=== PATIENT | male | born 1970 | race African-American/Black ===

== ENCOUNTER 2017-09-14 17:32 | Inpatient (IN) ==
[2017-09-14 18:55] LABS: Basophils # 0.1 10*3/uL (0.0-0.2); Basophils % 0.3 % (0.0-0.8); Hematocrit 45.9 VOL% (42.0-52.0); Hemoglobin 15.1 GM/DL (14.0-18.0); Immature Granulocytes % 1.2 %; Immature Granulocytes Absolute 0.26 #; Lymphocytes # 1.7 10*3/uL (1.4-4.0); Mean Corpuscular HGB Conc 32.9 GM/DL (32-36); Mean Corpuscular Hemoglobin 29 PG (27-34); Mean Platelet Volume 9.1 FL (9.6-12.0); Monocytes # 1.6 10*3/uL (0.11-0.8); Monocytes % 7.2 % (1.7-12.7); Neutrophils % 83.3 % (38.7-73.9); Platelet Count 253 T/CUMM (130-400); Red Blood Count 5.16 MC/CUMM (3.8-5.5); Red Cell Distribution Width 13.7 % (9.3-17.3); White Blood Count 21.6 T/CUMM (4-12)
[2017-09-14] MEDS ORDERED: MECLIZINE 25 MG TABLET PO STA (19:01)
[2017-09-14] MEDS ORDERED: ONDANSETRON ODT 4 MG TABLET PO STA (19:01)
[2017-09-14] MEDS ORDERED: SODIUM CHLORIDE 0.9% 500 ML IV STA (19:01)
[2017-09-14 19:14] LABS: Alanine Aminotransferase 43 U/L (16-61); Albumin 3.5 G/DL (3.4-5.0); Alkaline Phosphatase 71 U/L (45-117); Aspartate Amino Transferase 39 U/L (0-37); Blood Urea Nitrogen 12 MG/DL (7-18); Calcium 9.6 MG/DL (8.5-10.1); Glucose 116 MG/DL (74-106); Osmolality,Calculated 273.8 MOS/KG (273-304); Potassium 3.9 MMOL/L (3.5-5.1); Sodium 137 MMOL/L (136-145); Total Protein 7.9 G/DL (6.4-8.3); Troponin I Only < 0.015 NG/ML (0.00-0.045)
[2017-09-14 19:29] LABS: Apearance,Urine Slightly Hazy (Clear); Bacteria,Urine Occasional /HPF (Few); Bilirubin,Urine Negative (Negative); Blood, Urine Moderate mg/dL (Negative); Glucose,Urine (UA) Negative (Negative); Ketones,Urine Negative (Negative); Mucus,Urine Occasional /LPF (Occasional); Nitrite,Urine Negative (Negative); Protein,Urine 100 MG/DL; RBC,Urine 1 /HPF (0-4); Squamous Epithelial Cell,Urine Occasional /HPF (0-10); Urine Color Yellow (Yellow); Urine Specific Gravity 1.023 (1.001-1.035); Urine Urobilinogen < 2.0 EU/DL (0.2-1.0); WBC,Urine 14 /HPF (0-6)
[2017-09-14 19:32] LABS: Barbiturates Screen,Urine Negative (Negative); Benzodiazepines Screen,Urine Negative (Negative); Cannabinoid Screen,Urine Negative (Negative); Opiate Screen,Urine Negative (Negative); Phencyclidine Screen,Urine Negative (Negative)
[2017-09-14] MEDS ORDERED: ONDANSETRON ODT 4 MG TABLET PO ONE (19:32)
[2017-09-14] MEDS ORDERED: MECLIZINE 25 MG TABLET ONE (19:32)
[2017-09-14] MEDS ORDERED: cefTRIAXone 1,000 MG in SODIUM CHLORIDE 0.9% 100 ML IV STA (19:41)
[2017-09-14 20:02] LABS: Band Neutrophils 4 % (0-10); Hypochromasia 2+; Lymphocytes 9 % (20-55); Platelet Estimate Normal; Segmented Neutrophils 82 % (50-85); Total Cells Counted 100
[2017-09-14] MEDS ORDERED: cefTRIAXone 1,000 MG VIAL ONE (20:28)
[2017-09-15] MEDS ORDERED: ONDANSETRON 4 MG/2 ML VIAL IV PRN (02:17)
[2017-09-15] MEDS ORDERED: ACETAMINOPHEN 325 MG TABLET PO PRN (02:17)
[2017-09-15] MEDS ORDERED: MORPHINE 2 MG/1 ML SYRINGE IV PRN (02:17)
[2017-09-15] MEDS: SODIUM CHLORIDE 0.9% 1,000 ML IV SCH ×2 (03:05→17:05)
[2017-09-15] MEDS ORDERED: PIPERACILLIN/TAZOBACTAM 3,375 MG in SODIUM CHLORIDE 0.9% 100 ML IV SCH (04:00)
[2017-09-15] MEDS: TERBINAFINE 1% CREAM 12 GM TUBE TOP SCH ×3 (04:56→20:46)
[2017-09-15] MEDS ORDERED: ALUMINUM/MAGNES/SIMETH MAX STR 30 ML UDCUP PO PRN (05:14)
[2017-09-15 05:28] LABS: Basophils # 0.1 10*3/uL (0.0-0.2); Basophils % 0.3 % (0.0-0.8); Eosinophils % 0.1 % (0.00-10.9); Hematocrit 40.5 VOL% (42.0-52.0); Hemoglobin 13.5 GM/DL (14.0-18.0); Immature Granulocytes % 0.8 %; Immature Granulocytes Absolute 0.14 #; Lymphocytes # 1.6 10*3/uL (1.4-4.0); Lymphocytes % 9.6 % (21.2-54.2); Mean Corpuscular HGB Conc 33.3 GM/DL (32-36); Mean Corpuscular Hemoglobin 30 PG (27-34); Mean Platelet Volume 9.6 FL (9.6-12.0); Monocytes # 1.3 10*3/uL (0.11-0.8); Monocytes % 7.8 % (1.7-12.7); Neutrophils % 81.4 % (38.7-73.9); Platelet Count 219 T/CUMM (130-400); Red Blood Count 4.55 MC/CUMM (3.8-5.5); Red Cell Distribution Width 13.8 % (9.3-17.3); White Blood Count 17.1 T/CUMM (4-12)
[2017-09-15 05:50] LABS: Band Neutrophils 1 % (0-10); Giant Platelets Few; Hypochromasia 1+; Lymphocytes 5 % (20-55); Microcytosis Slight; Platelet Estimate Adequate; Segmented Neutrophils 86 % (50-85); Total Cells Counted 100
[2017-09-15 05:56] LABS: Calcium 8.5 MG/DL (8.5-10.1); Osmolality,Calculated 278.5 MOS/KG (273-304); Potassium 3.8 MMOL/L (3.5-5.1)
[2017-09-15] MEDS ORDERED: CEFTAROLINE 600 MG in SODIUM CHLORIDE 0.9% 100 ML IV SCH (08:00)
[2017-09-15] MEDS: PANTOPRAZOLE 40 MG TABLET PO SCH (09:34)
[2017-09-15] MEDS: ENOXAPARIN 40 MG/0.4 ML SYRINGE SUBCUT SCH (09:34)
[2017-09-15] MEDS: CEFTAROLINE 600 MG in SODIUM CHLORIDE 0.9% 100 ML IV SCH ×2 (11:22→23:00)
[2017-09-15] MEDS: FLUCONAZOLE INJ 200 MG in PREMIX 1 EACH IV SCH (13:41)
[2017-09-15] MEDS: METOPROLOL SUCCINATE XL 50 MG TABLET PO SCH (17:03)
[2017-09-16] MEDS: SODIUM CHLORIDE 0.9% 1,000 ML IV SCH ×4 (01:05→19:13)
[2017-09-16 05:12] LABS: Basophils % 0.3 % (0.0-0.8); Eosinophils % 0.3 % (0.00-10.9); Hematocrit 39.4 VOL% (42.0-52.0); Hemoglobin 13.5 GM/DL (14.0-18.0); Immature Granulocytes % 1.3 %; Immature Granulocytes Absolute 0.15 #; Lymphocytes # 2.6 10*3/uL (1.4-4.0); Lymphocytes % 21.3 % (21.2-54.2); Mean Corpuscular HGB Conc 34.3 GM/DL (32-36); Mean Corpuscular Hemoglobin 30 PG (27-34); Mean Corpuscular Volume 87.4 FL (87-102); Mean Platelet Volume 9.5 FL (9.6-12.0); Monocytes # 1.2 10*3/uL (0.11-0.8); Neutrophils % 66.8 % (38.7-73.9); Platelet Count 251 T/CUMM (130-400); Red Blood Count 4.51 MC/CUMM (3.8-5.5)
[2017-09-16 05:33] LABS: Band Neutrophils 1 % (0-10); Giant Platelets Few; Hypochromasia Slight; Lymphocytes 11 % (20-55); Microcytosis Slight; Platelet Estimate Adequate; Segmented Neutrophils 77 % (50-85); Total Cells Counted 100
[2017-09-16] MEDS: ENOXAPARIN 40 MG/0.4 ML SYRINGE SUBCUT SCH (09:56)
[2017-09-16] MEDS: TERBINAFINE 1% CREAM 12 GM TUBE TOP SCH ×2 (09:57→22:12)
[2017-09-16] MEDS: PANTOPRAZOLE 40 MG TABLET PO SCH (09:57)
[2017-09-16] MEDS: METOPROLOL SUCCINATE XL 50 MG TABLET PO SCH (09:58)
[2017-09-16] MEDS: FLUCONAZOLE INJ 200 MG in PREMIX 1 EACH IV SCH (09:59)
[2017-09-16] MEDS: CEFTAROLINE 600 MG in SODIUM CHLORIDE 0.9% 100 ML IV SCH ×2 (12:57→23:13)
[2017-09-17 03:30] LABS: Basophils # 0.1 10*3/uL (0.0-0.2); Basophils % 0.5 % (0.0-0.8); Eosinophils # 0.1 10*3/uL (0.0-0.87); Hematocrit 40.6 VOL% (42.0-52.0); Hemoglobin 13.3 GM/DL (14.0-18.0); Immature Granulocytes % 3.6 %; Immature Granulocytes Absolute 0.42 #; Lymphocytes # 2.9 10*3/uL (1.4-4.0); Lymphocytes % 24.6 % (21.2-54.2); Mean Corpuscular HGB Conc 32.8 GM/DL (32-36); Mean Corpuscular Hemoglobin 29 PG (27-34); Mean Corpuscular Volume 89.8 FL (87-102); Mean Platelet Volume 9.6 FL (9.6-12.0); Monocytes # 1.1 10*3/uL (0.11-0.8); Monocytes % 9.5 % (1.7-12.7); Neutrophils # 7.1 10*3/uL (1.4-7.4); Neutrophils % 60.8 % (38.7-73.9); Platelet Count 236 T/CUMM (130-400); Red Blood Count 4.52 MC/CUMM (3.8-5.5); Red Cell Distribution Width 14.1 % (9.3-17.3); White Blood Count 11.7 T/CUMM (4-12)
[2017-09-17 03:51] LABS: Potassium 4.3 MMOL/L (3.5-5.1)
[2017-09-17] MEDS: SODIUM CHLORIDE 0.9% 1,000 ML IV SCH (04:55)
[2017-09-17 05:38] LABS: Platelet Estimate Normal
[2017-09-17] MEDS: ENOXAPARIN 40 MG/0.4 ML SYRINGE SUBCUT SCH (10:05)
[2017-09-17] MEDS: FLUCONAZOLE INJ 200 MG in PREMIX 1 EACH IV SCH (10:06)
[2017-09-17] MEDS: METOPROLOL SUCCINATE XL 50 MG TABLET PO SCH (10:08)
[2017-09-17] MEDS: PANTOPRAZOLE 40 MG TABLET PO SCH (10:08)
[2017-09-17] MEDS: TERBINAFINE 1% CREAM 12 GM TUBE TOP SCH (10:08)
[2017-09-17] MEDS: CEFTAROLINE 600 MG in SODIUM CHLORIDE 0.9% 100 ML IV SCH (12:29)
[2017-09-17 14:11] VITALS: BP 148/64
== END 2017-09-17 14:32 | disposition home or self-care (01) | DRG 872 ==
LOC: N.ED 17:32 → N.EDINP 09-15 01:54 → N.3E 09-15 02:19
PROVIDERS: ADMIT Internal Medicine; ATTEND Internal Medicine

== ENCOUNTER 2020-07-12 10:53 | Inpatient (IN) ==
[2020-07-12] MEDS ORDERED: ACETAMINOPHEN 500 MG TABLET PO STA (13:44)
[2020-07-12] MEDS ORDERED: IBUPROFEN 600 MG TABLET PO STA (14:38)
[2020-07-12] MEDS ORDERED: cefTRIAXone 2,000 MG in SODIUM CHLORIDE 0.9% 100 ML IV STA (14:44)
[2020-07-12] MEDS ORDERED: VANCOMYCIN INJ 2,250 MG in SODIUM CHLORIDE 0.9% 250 ML IV ONE (14:45)
[2020-07-12 15:28] LABS: Basophils # 0.1 10*3/uL (0.0-0.2); Basophils % 0.3 % (0.0-0.8); Hematocrit 42.9 VOL% (42.0-52.0); Hemoglobin 14.6 GM/DL (14.0-18.0); Immature Granulocytes % 0.9 %; Immature Granulocytes Absolute 0.18 #; Lymphocytes # 1.3 10*3/uL (1.4-4.0); Lymphocytes % 6.7 % (21.2-54.2); Mean Corpuscular Volume 86.3 FL (87-102); Mean Platelet Volume 9.1 FL (9.6-12.0); Monocytes % 5.3 % (1.7-12.7); Neutrophils % 86.8 % (38.7-73.9); Platelet Count 250 T/CUMM (130-400); Red Blood Count 4.97 MC/CUMM (3.8-5.5); Red Cell Distribution Width 13.8 % (9.3-17.3)
[2020-07-12 15:57] LABS: Band Neutrophils 9 % (0-10); Lymphocytes 4 % (20-55); Platelet Estimate Normal; Segmented Neutrophils 81 % (50-85); Total Cells Counted 100
[2020-07-12 16:01] LABS: Albumin 3.2 G/DL (3.4-5.0); Bilirubin,Total 0.4 MG/DL (0.2-1.0); Calcium 9.1 MG/DL (8.5-10.1); Osmolality,Calculated 271.1 MOS/KG (273-304)
[2020-07-12 16:38] LABS: Sedimentation Rate-Westergren 80 MM/HR (0-15)
[2020-07-12] MEDS ORDERED: POTASSIUM CHLORIDE 20 MEQ TABLET PO STA (16:41)
[2020-07-12] MEDS ORDERED: SODIUM CHLORIDE 0.9% 1,000 ML IV STA (16:41)
[2020-07-12] MEDS ORDERED: hydrALAZINE 20 MG/1 ML VIAL IV PRN (16:47)
[2020-07-12] MEDS ORDERED: traZODone 50 MG TABLET PO PRN (16:47)
[2020-07-12] MEDS ORDERED: ZALEPLON 5 MG CAPSULE PO PRN (16:47)
[2020-07-12] MEDS ORDERED: DEXTROSE 50% 25 GM/50 ML VIAL IV PRN (16:47)
[2020-07-12] MEDS ORDERED: LACTULOSE 20 GM/30 ML UDCUP PO PRN (16:47)
[2020-07-12] MEDS ORDERED: SIMETHICONE CHEW 125 MG TABLET PO PRN (16:47)
[2020-07-12] MEDS ORDERED: DOCUSATE SODIUM 100 MG CAPSULE PO PRN (16:47)
[2020-07-12] MEDS ORDERED: PROMETHAZINE 25 MG TABLET PO PRN (16:47)
[2020-07-12] MEDS ORDERED: NICOTINE 21 MG/24 HR PATCH TRANSDERM PRN (16:47)
[2020-07-12] MEDS ORDERED: PROMETHAZINE 25 MG/1 ML VIAL IM PRN (16:47)
[2020-07-12] MEDS ORDERED: guaiFENesin/DM ER 600-30 MG TABLET PO PRN (16:47)
[2020-07-12] MEDS ORDERED: diphenhydrAMINE CAP 25 MG CAPSULE PO PRN (16:47)
[2020-07-12] MEDS ORDERED: BISACODYL 5 MG TABLET PO PRN (16:47)
[2020-07-12] MEDS ORDERED: MORPHINE 4 MG/1 ML VIAL IV PRN (16:47)
[2020-07-12] MEDS ORDERED: CALCIUM CARBONATE CHEW 500 MG TABLET PO PRN (16:47)
[2020-07-12] MEDS ORDERED: ALUMINUM/MAGNES/SIMETH MAX STR 30 ML UDCUP PO PRN (16:47)
[2020-07-12] MEDS ORDERED: ALBUTEROL/IPRATROPIUM 3 ML NEB RESP TX PRN (16:47)
[2020-07-12] MEDS ORDERED: GLUCAGON 1 MG VIAL IM PRN (16:47)
[2020-07-12] MEDS: SODIUM CHLORIDE 0.9% 1,000 ML IV SCH (17:00)
[2020-07-12 18:14] LABS: Barbiturates Screen,Urine Negative (Negative); Benzodiazepines Screen,Urine Negative (Negative); Cannabinoid Screen,Urine Negative (Negative); Opiate Screen,Urine Positive (Negative); Phencyclidine Screen,Urine Negative (Negative)
[2020-07-12] MEDS: ACETAMINOPHEN 500 MG TABLET PO SCH (22:24)
[2020-07-12] MEDS: HEPARIN 5,000 UNIT/1 ML VIAL SUBCUT SCH (22:25)
[2020-07-12] MEDS: PIPERACILLIN/TAZOBACTAM 3,375 MG in SODIUM CHLORIDE 0.9% 100 ML IV SCH (22:30)
[2020-07-13] MEDS: SODIUM CHLORIDE 0.9% 1,000 ML IV SCH ×3 (02:47→16:38)
[2020-07-13 04:00] LABS: Basophils % 0.3 % (0.0-0.8); Eosinophils % 0.3 % (0.00-10.9); Hematocrit 42.4 VOL% (42.0-52.0); Hemoglobin 13.9 GM/DL (14.0-18.0); Immature Granulocytes % 0.8 %; Lymphocytes % 9.4 % (21.2-54.2); Mean Corpuscular HGB Conc 32.8 GM/DL (32-36); Mean Corpuscular Volume 88.7 FL (87-102); Mean Platelet Volume 9.2 FL (9.6-12.0); Monocytes % 8.2 % (1.7-12.7); Platelet Count 252 T/CUMM (130-400); Red Blood Count 4.78 MC/CUMM (3.8-5.5); Red Cell Distribution Width 13.9 % (9.3-17.3); White Blood Count 15.9 T/CUMM (4-12)
[2020-07-13 04:01] LABS: Eosinophils # 0.1 10*3/uL (0.0-0.87); Immature Granulocytes Absolute 0.12 #; Lymphocytes # 1.5 10*3/uL (1.4-4.0)
[2020-07-13 04:19] LABS: Albumin 2.6 G/DL (3.4-5.0); Bilirubin,Total 0.5 MG/DL (0.2-1.0); Calcium 8.5 MG/DL (8.5-10.1); Osmolality,Calculated 276.7 MOS/KG (273-304); Total Protein 7.2 G/DL (6.4-8.3)
[2020-07-13 04:25] LABS: Risk Ratio 10.19; Thyroid Stimulating Hormone 1.46 uIU/ml (0.358-3.74); VLDL CHOLESTEROL 71.2 MG/DL
[2020-07-13 04:49] LABS: Band Neutrophils 3 % (0-10); Eosinophils 2 % (0-10); Hypochromasia 1+; Lymphocytes 5 % (20-55); Segmented Neutrophils 84 % (50-85); Total Cells Counted 100
[2020-07-13 04:50] LABS: Microcytosis Slight; Platelet Estimate Normal
[2020-07-13] MEDS: HEPARIN 5,000 UNIT/1 ML VIAL SUBCUT SCH ×3 (05:00→21:44)
[2020-07-13] MEDS: ACETAMINOPHEN 500 MG TABLET PO SCH ×3 (06:02→21:44)
[2020-07-13] MEDS: PIPERACILLIN/TAZOBACTAM 3,375 MG in SODIUM CHLORIDE 0.9% 100 ML IV SCH ×3 (06:06→22:00)
[2020-07-13] MEDS ORDERED: SODIUM PHOSPHATE INJ 30 MMOL in SODIUM CHLORIDE 0.9% 250 ML IV ONE (08:00)
[2020-07-13] MEDS: OMEGA 3 ACID ETHYL ESTERS 1 GM CAPSULE PO SCH ×2 (09:20→21:43)
[2020-07-13] MEDS: PANTOPRAZOLE 40 MG TABLET PO SCH (09:21)
[2020-07-13] MEDS ORDERED: SKIN HEALING OINT (AQUAPHOR) 50 GM TUBE TOP PRN (10:55)
[2020-07-13] MEDS ORDERED: VANCOMYCIN INJ 2,000 MG in SODIUM CHLORIDE 0.9% 500 ML IV SCH (18:00)
[2020-07-13] MEDS: ROSUVASTATIN 10 MG TABLET PO SCH (21:43)
[2020-07-13] MEDS: CLOTRIMAZOLE/BETAMETHASONE CREAM 15 GM TUBE TOP SCH (21:43)
[2020-07-14] MEDS: HEPARIN 5,000 UNIT/1 ML VIAL SUBCUT SCH ×3 (05:12→21:07)
[2020-07-14] MEDS: PIPERACILLIN/TAZOBACTAM 3,375 MG in SODIUM CHLORIDE 0.9% 100 ML IV SCH ×3 (05:16→23:47)
[2020-07-14 05:51] LABS: Basophils # 0.1 10*3/uL (0.0-0.2); Basophils % 0.5 % (0.0-0.8); Eosinophils # 0.1 10*3/uL (0.0-0.87); Eosinophils % 0.8 % (0.00-10.9); Hematocrit 44.7 VOL% (42.0-52.0); Hemoglobin 14.5 GM/DL (14.0-18.0); Immature Granulocytes % 1.6 %; Immature Granulocytes Absolute 0.18 #; Lymphocytes # 2.3 10*3/uL (1.4-4.0); Lymphocytes % 20.2 % (21.2-54.2); Mean Corpuscular HGB Conc 32.4 GM/DL (32-36); Mean Corpuscular Volume 88.7 FL (87-102); Mean Platelet Volume 9.6 FL (9.6-12.0); Monocytes % 9.9 % (1.7-12.7); Platelet Count 278 T/CUMM (130-400); Red Blood Count 5.04 MC/CUMM (3.8-5.5); Red Cell Distribution Width 14.3 % (9.3-17.3); White Blood Count 11.6 T/CUMM (4-12)
[2020-07-14 06:15] LABS: Bilirubin,Total 0.5 MG/DL (0.2-1.0); Calcium 8.9 MG/DL (8.5-10.1); Osmolality,Calculated 272.7 MOS/KG (273-304); Total Protein 8.2 G/DL (6.4-8.3)
[2020-07-14] MEDS: ACETAMINOPHEN 500 MG TABLET PO SCH ×3 (06:49→22:20)
[2020-07-14] MEDS: CLOTRIMAZOLE/BETAMETHASONE CREAM 15 GM TUBE TOP SCH ×2 (08:32→21:07)
[2020-07-14] MEDS: OMEGA 3 ACID ETHYL ESTERS 1 GM CAPSULE PO SCH ×2 (08:32→21:07)
[2020-07-14] MEDS: PANTOPRAZOLE 40 MG TABLET PO SCH (08:32)
[2020-07-14] MEDS: ROSUVASTATIN 10 MG TABLET PO SCH (21:07)
[2020-07-14] MEDS: SODIUM CHLORIDE 0.9% 1,000 ML IV SCH (23:53)
[2020-07-15] MEDS: HEPARIN 5,000 UNIT/1 ML VIAL SUBCUT SCH (04:14)
[2020-07-15] MEDS: ACETAMINOPHEN 500 MG TABLET PO SCH (06:18)
[2020-07-15 06:42] LABS: Basophils # 0.1 10*3/uL (0.0-0.2); Basophils % 0.7 % (0.0-0.8); Eosinophils # 0.1 10*3/uL (0.0-0.87); Eosinophils % 1.1 % (0.00-10.9); Immature Granulocytes % 5.8 %; Immature Granulocytes Absolute 0.62 #; Lymphocytes # 2.3 10*3/uL (1.4-4.0); Lymphocytes % 21.8 % (21.2-54.2); Mean Corpuscular HGB Conc 33.3 GM/DL (32-36); Mean Corpuscular Volume 88.1 FL (87-102); Mean Platelet Volume 9.7 FL (9.6-12.0); Monocytes % 9.4 % (1.7-12.7); Neutrophils % 61.2 % (38.7-73.9); Platelet Count 297 T/CUMM (130-400); Red Blood Count 4.77 MC/CUMM (3.8-5.5); Red Cell Distribution Width 14.2 % (9.3-17.3); White Blood Count 10.6 T/CUMM (4-12)
[2020-07-15 07:08] LABS: Eosinophils 1 % (0-10); Hypochromasia 1+; Lymphocytes 24 % (20-55); Microcytosis Slight; Myelocytes 3 %; Segmented Neutrophils 64 % (50-85); Total Cells Counted 100
[2020-07-15 07:09] LABS: Platelet Estimate Normal
[2020-07-15 07:15] LABS: Albumin 2.8 G/DL (3.4-5.0); Bilirubin,Total 1.2 MG/DL (0.2-1.0); Osmolality,Calculated 273.7 MOS/KG (273-304); Total Protein 7.6 G/DL (6.4-8.3)
[2020-07-15] MEDS: OMEGA 3 ACID ETHYL ESTERS 1 GM CAPSULE PO SCH (09:40)
[2020-07-15] MEDS: PANTOPRAZOLE 40 MG TABLET PO SCH (09:40)
[2020-07-15] MEDS: CLOTRIMAZOLE/BETAMETHASONE CREAM 15 GM TUBE TOP SCH (09:44)
[2020-07-15] MEDS: PIPERACILLIN/TAZOBACTAM 3,375 MG in SODIUM CHLORIDE 0.9% 100 ML IV SCH (10:31)
[2020-07-15 11:38] VITALS: BP 152/81
== END 2020-07-15 11:55 | disposition home or self-care (01) | DRG 603 ==
LOC: N.ED 10:53 → N.EDINP 16:48 → SUATTDRO 19:56 → N.EDINP 20:00
PROVIDERS: ADMIT Internal Medicine; ATTEND Internal Medicine